=== PATIENT | male | born 1970 | race Caucasian/White ===

== ENCOUNTER 2017-06-16 19:26 | Emergency (ER) | payer BC, OTHER ==
[~2017-06-16] VITALS: Ht 172.7 cm; Wt 67.9 kg
[~2017-06-16 19:26] MED LIST: CRANPOW PO; FLX10 PO; HYDR-4079 PO; IBUP600T44 PO; MAGNESIUM OTC PO; MULT-506 PO
[2017-06-16 19:30] VITALS: TEMP 36.5; Ht 172.7 cm; Wt 67.9 kg
[2017-06-16] MEDS ORDERED: ONDANSETRON INJ 2 MG/ML 2 ML VIAL IV STA (19:41)
[2017-06-16] MEDS ORDERED: SODIUM CHLORIDE 0.9% 1000ML 1,000 ML IV STA (19:41)
[2017-06-16] MEDS ORDERED: KETOROLAC TROMETHAMINE 30 MG/ML VIAL IV STA (19:41)
--- NOTE | 2017-06-16 20:10 | EMERGENCY ROOM VISIT NOTE ---
History Report prepared by Lawanda: Laurence Muhammad Under the Supervision of: Dr. Taiwo Rosenberg M.D. First contact with patient: 19:32 Chief Complaint: GI ASSESSMENT Stated Complaint: NAUSEA,VOMITING,DIARRHEA History of Present Illness The patient is a 47 year old male who presents to the Emergency Room with complaints of constant nausea and sensation of vomiting since last night [employer]. He notes shortness of breath, sore throat, nausea, dry heaving, abdominal pain, achy back pain, neck pain, rhinorrhea, and mild headache. No neck pain or stiffness He denies any fevers, diarrhea, chest pain, ear pain, leg pain or swelling. He denies any underlying medical problems. He has a history of kidney stones. Source of History: patient, spouse/significant other Onset: since last night [employer] Symptom Intensity: 5/10 Quality: other (vomiting) Timing: constant Associated Symptoms: + headache (mild), + sorethroat, + SOB, + nausea, + vomiting (with dry heaving), + abdominal pain, + back pain (achy), No fevers, No chest pain, No diarrhea Note: He notes neck pain and rhinorrhea. He denies ear pain, leg pain, or leg swelling. Review of Systems See HPI for pertinent positives & negatives. A total of 10 systems reviewed and were otherwise negative. Past Medical & Surgical Medical Problems: (1) Kidney stones Surgical Problems: (1) History of thumb surgery Old medical records were reviewed. Nurse's notes were reviewed and I agree with. Family History No pertinent family history reported. Social History Smoking Status: Never Smoker Smokeless Tobacco Use: No Alcohol Use: none Drug Use: none Marital Status: Housing Status: lives with significant other Occupation Status: unemployed Current/Historical Medications Scheduled Ascorbic Acid (Ascorbic Acid), 1 TAB PO DAILY Azithromycin (Zithromax Z-Master), 0 PO UD Calcium Carbonate (Calcium 600), 1 TAB PO DAILY Cholecalciferol (Vitamin D3), 1 CAP PO DAILY Citalopram Hydrobromide (Citalopram Hydrobromide), 1.5 TAB PO DAILY Cyclobenzaprine Hcl (Flexeril), 10 MG PO TID Hydrocodone/Acetaminophen 10MG/325MG ([place] 10MG/325MG), 1 TAB PO QID PRN Ibuprofen (Motrin), 600 MG PO PRN Multivitamin (Multivitamin), 1 TAB PO DAILY Omeprazole (Prilosec), 20 MG PO DAILY Miscellaneous Medications Magnesium Oxide (Mag-Ox), 400 MG PO Allergies Coded Allergies: No Known Allergies (Verified , NONE, 06/16/17) Physical Exam Vital Signs Date Time Temp Pulse Resp B/P (MAP) Pulse Ox O2 Delivery O2 Flow Rate FiO2 06/16/17 21:34 80 18 145/78 100 Room Air 06/16/17 20:32 74 06/16/17 19:30 36.5 80 18 178/99 100 Room Air Physical Exam General: Mildly-ill appearing middle-aged male in no acute distress. Non-toxic HEENT: Normal cephalic atraumatic. Pupils are equal round and reactive to light. Extraocular movements are intact. Oropharynx is pink with moist mucous membranes. No swelling of the mouth lips or tongue. Neck: Supple with a midline trachea. No meningeal signs or stiffness, no JVD or bruits. No Stridor. Chest: Clear to auscultation bilaterally. No wheezes or rhonchi. No increased work of breathing. No respiratory distress. Heart: regular rate and rhythm. Abdomen: Soft nontender, nondistended without rebound guarding or rigidity. Mild tenderness in thoracic spine bilaterally. Mildly diffuse abdominal tenderness. Extremities: No cyanosis clubbing or edema. No calf tenderness or assymetry Spine/Back. Non tender to palpation. No CVA tenderness Skin: Good turgor without rashes. Neurologic exam: Cranial nerves two through 12 are intact. Motor and sensation are intact and symmetrical throughout. Medical Decision & Procedures ER Provider Diagnostic Interpretation: Radiology results as stated below per my review and radiologist interpretation: SINGLE VIEW CHEST CLINICAL HISTORY: Atypical chest pain. FINDINGS: An AP, portable, upright chest radiograph is compared to study dated 06/06/2010. The examination is degraded by portable technique and patient rotation. The cardiomediastinal silhouette is unremarkable. The lungs and pleural spaces are clear. No pneumothorax is seen. The bony thorax is grossly intact. IMPRESSION: No acute cardiopulmonary abnormality. Electronically signed by: Mike Hernandez M.D. 06/16/2017 8:07 PM Dictated Date/Time: 06/16/2017 8:07 PM Laboratory Results 06/16/17 20:05 Red Blood Count 4.44, Mean Corpuscular Volume 75.7, Mean Corpuscular Hemoglobin 21.8, Mean Corpuscular Hemoglobin Concent 28.9, Mean Platelet Volume 9.4, Neutrophils (%) (Auto) 52.4, Lymphocytes (%) (Auto) 25.0, Monocytes (%) (Auto) 11.7, Eosinophils (%) (Auto) 10.2, Basophils (%) (Auto) 0.5, Neutrophils # (Auto ) 3.04, Lymphocytes # (Auto) 1.45, Monocytes # (Auto) 0.68, Eosinophils # (Auto ) 0.59, Basophils # (Auto) 0.03 06/16/17 20:05 Test 06/16/17 20:00 06/16/17 20:05 06/16/17 20:15 Urine Color YELLOW Urine Appearance CLOUDY (CLEAR) Urine pH 6.0 (4.5-7.5) Urine Specific [place] 1.027 (1.000-1.030) Urine Protein 3+ (NEG) Urine Glucose (UA) NEG (NEG) Urine Ketones NEG (NEG) Urine Occult Blood NEG (NEG) Urine Nitrite NEG (NEG) Urine Bilirubin NEG (NEG) Urine Urobilinogen NEG (NEG) Urine Leukocyte Esterase NEG (NEG) Urine WBC (Auto) 1-5 /hpf (0-5) Urine RBC (Auto) 0-4 /hpf (0-4) Urine Hyaline Casts (Auto) 5-10 /lpf (0-5) Urine Epithelial Cells (Auto) >30 /lpf (0-5) Urine Bacteria (Auto) NEG (NEG) Influenza Type A Antigen Neg for Influ A (NEG) Influenza Type B Antigen Neg for Influ B (NEG) White Blood Count 5.80 K/uL (4.8-10.8) Red Blood Count 4.44 M/uL (4.7-6.1) Hemoglobin 9.7 g/dL (14.0-18.0) Hematocrit 33.6 % (42-52) Mean Corpuscular Volume 75.7 fL (80-100) Mean Corpuscular Hemoglobin 21.8 pg (25-34) Mean Corpuscular Hemoglobin Concent 28.9 g/dl (32-36) Platelet Count 605 K/uL (130-400) Mean Platelet Volume 9.4 fL (7.4-10.4) Neutrophils (%) (Auto) 52.4 % Lymphocytes (%) (Auto) 25.0 % Monocytes (%) (Auto) 11.7 % Eosinophils (%) (Auto) 10.2 % Basophils (%) (Auto) 0.5 % Neutrophils # (Auto) 3.04 K/uL (1.4-6.5) Lymphocytes # (Auto) 1.45 K/uL (1.2-3.4) Monocytes # (Auto) 0.68 K/uL (0.11-0.59) Eosinophils # (Auto) 0.59 K/uL (0-0.5) Basophils # (Auto) 0.03 K/uL (0-0.2) RDW Standard Deviation 52.9 fL (36.4-46.3) RDW Coefficient of Variation 19.2 % (11.5-14.5) Immature Granulocyte % (Auto) 0.2 % Immature Granulocyte # (Auto) 0.01 K/uL (0.00-0.02) Hypochromasia PRESENT Microcytosis PRESENT Ovalocytes 1+ Anion Gap 7.0 mmol/L (3-11) Est Creatinine Clear Calc Drug Dose 71.1 ml/min Estimated GFR () 80.8 Estimated GFR (Non- 69.7 BUN/Creatinine Ratio 8.7 (10-20) Calcium Level 9.2 mg/dl (8.5-10.1) Total Bilirubin 0.3 mg/dl (0.2-1) Direct Bilirubin < 0.1 mg/dl (0-0.2) Aspartate Amino Transf (AST/SGOT) 9 U/L (15-37) Alanine Aminotransferase (ALT/SGPT) 13 U/L (12-78) Alkaline Phosphatase 84 U/L (45-117) Total Protein 8.7 gm/dl (6.4-8.2) Albumin 4.7 gm/dl (3.4-5.0) Lipase 185 U/L (73-393) Bedside Troponin I < 0.030 ng/ml (0-0.045) Laboratory studies as stated above per my review. Medications Administered Medications (Trade) Dose Ordered Sig/Nuvia Route Start Time Stop Time Status Last Admin Dose Admin Sodium Chloride 1,000 ml @ 999 mls/hr Q1H1M STAT IV 06/16/17 19:41 06/16/17 20:41 DC 06/16/17 20:11 999 MLS/HR Ondansetron HCl (Zofran Inj) 4 mg NOW STAT IV 06/16/17 19:41 06/16/17 19:43 DC 06/16/17 20:09 4 MG Ketorolac Tromethamine (Toradol Inj) 30 mg NOW STAT IV 06/16/17 19:41 06/16/17 19:43 DC 06/16/17 20:11 30 MG Pseudoephedrine HCl (Sudafed Tab) 30 mg NOW STAT PO 06/16/17 21:50 06/16/17 21:51 DC 06/16/17 21:57 30 MG Azithromycin (Zithromax Tab) 500 mg NOW ONCE PO 06/16/17 22:00 06/16/17 22:01 DC 06/16/17 21:57 500 MG ECG Indication: vomiting Rate (beats per minute): 65 Rhythm: normal sinus Findings: PVC, no acute ischemic change Comparison ECG Date: no prior available ED Course 1931: Past medical records reviewed. The patient was evaluated in room A10, and a complete history and physical examination were performed. 1940: Ordered Toradol 30 mg IV, Zofran 4 mg IV, NSS 1,000 ml @ 999 mls/hr 2146: I reassessed the patient at this time. He is feeling better and resting comfortably. I discussed the results and treatment plan with the patient. I answered all pertaining questions that he had. He expressed understanding and verbalized agreement. The patient will be discharged home. 2149: Ordered Sudafed 30 mg PO 2199: Ordered Zithromax 500 mg PO Medical Decision Differentials include, but are not limited to: viral illness, infection, cardiac disease, and electrolyte or metabolic abnormality. This patient comes in as described above. He was placed in room A 10. He comes in with multiple different complaints. He has had diffuse achiness URI type symptoms and flulike type symptoms and he also some nausea. He appears nontoxic on exam. He has nothing to just meningitis encephalitis or sepsis. IV access established and he was hydrated with IV normal saline and given Toradol IV and IV Zofran and is feeling a lot better. He started complaining mostly of nasal congestion. On exam, he is very congested and says it is making him feel like it's hard to breathe through his nose. He was given Sudafed. Chest x-ray does not show pneumonia. EKG does not suggest acute coronary syndrome or arrhythmia. He's had no chest pain or anything to suggest acute cardiac event. Additionally, His troponin is not elevated. He has no white count or fever to suggest infection. He was found to be anemic at 9.7. I do not have a recent hemoglobin for comparison. He denies that he has any blood or black colored stools. His abdomen is not tender or distended and has nothing to suggest acute intra-abdominal process or trauma. He has no acute electrolyte or metabolic abnormalities. Influenza was negative. I do think is most likely a viral URI however I will put him azithromycin to cover the possibly sinusitis and he can use Sudafed as well encouraged close follow-up with his regular doctor next 1-2 days for recheck. He was happy with plan and was discharged to home. Medication Reconcilliation Current Medication List: was personally reviewed by me Blood Pressure Screening Patient's blood pressure: Elevated blood pressure Blood pressure disposition: Elevated BP felt to be situational Impression Primary Impression: Viral illness Additional Impressions: URI (upper respiratory infection) Sinusitis Scribe Attestation The scribe's documentation has been prepared under my direction and personally reviewed by me in its entirety. I confirm that the note above accurately reflects all work, treatment, procedures, and medical decision making performed by me. Departure Information Dispostion Home / Self-Care Prescriptions Azithromycin (ZITHROMAX Z-MASTER) 250 Mg Tab 0 PO UD, #1 PKT Prov: Taiwo Rosenberg M.D. 06/16/17 Referrals Vineet Borges M.D. (PCP) Forms HOME CARE DOCUMENTATION FORM, IMPORTANT VISIT INFORMATION Patient Instructions My [facility] Additional Instructions Rest Drink plenty of fluids. Use azithromycin Z-Master as directed. May use [id number] Sudafed Follow-up with your doctor in 1-2 days for recheck Return if: Worsening of symptoms, shortness of breath, any new problems or concerns. Problem Qualifiers
[2017-06-16 20:26] LABS: URINE APPEARANCE CLOUDY (CLEAR); URINE BILIRUBIN NEG (NEG); URINE COLOR YELLOW; URINE EPITHELIAL CELL AUTO >30 /lpf (0-5); URINE NITRITE NEG (NEG); URINE SPECIFIC GRAVITY 1.027 (1.000-1.030); UROBILINOGEN NEG (NEG)
[2017-06-16 20:36] LABS: MANUAL MICROSCOPIC REQUIRED? NO; REVIEW REQ? NO
[2017-06-16] MEDS ORDERED: MAGN400T6 PO (20:53)
[2017-06-16] MEDS ORDERED: CALC600T PO (20:53)
[2017-06-16] MEDS ORDERED: CITA20TA4 PO (20:53)
[2017-06-16] MEDS ORDERED: PRLSR20 PO (20:53)
[2017-06-16] MEDS ORDERED: CYCL10TA6 PO (20:53)
[2017-06-16] MEDS ORDERED: CHOL2000 PO (20:53)
[2017-06-16] MEDS ORDERED: ASCO100061 PO (20:53)
[2017-06-16 21:01] LABS: BUN/CREATININE RATIO 8.7 (10-20); CALCIUM 9.2 mg/dl (8.5-10.1); CREATININE 1.22 mg/dl (0.60-1.40); POTASSIUM 3.7 mmol/L (3.5-5.1)
[2017-06-16 21:10] LABS: HEMATOCRIT 33.6 % (42-52); MEAN CELL VOLUME 75.7 fL (80-100); MEAN CORPUSCULAR HEMOGLOBIN 21.8 pg (25-34); MEAN CORPUSCULAR HGB CONC 28.9 g/dl (32-36); MEAN PLATELET VOLUME 9.4 fL (7.4-10.4); PLATELET COUNT 605 K/uL (130-400); RED BLOOD COUNT 4.44 M/uL (4.7-6.1)
[2017-06-16 21:20] LABS: ALKALINE PHOSPHATASE 84 U/L (45-117); ALT/SGPT 13 U/L (12-78); AST/SGOT 9 U/L (15-37)
[2017-06-16 21:34] VITALS: BP 145/78; PULSE 80; O2SAT 100
[2017-06-16] MEDS ORDERED: PSEUDOEPHEDRINE HCL 30 MG TAB PO STA (21:50)
[2017-06-16 21:51] LABS: BASO % 0.5 %; BASO ABS # 0.03 K/uL (0-0.2); EOS % 10.2 %; HYPOCHROMIA PRESENT; IG% 0.2 %; LYMPH ABS # 1.45 K/uL (1.2-3.4); MICROCYTOSIS PRESENT; MONO % 11.7 %; NEUT % 52.4 %; OVALOCYTES 1+
[2017-06-16] MEDS ORDERED: AZITTAB PO (21:53)
[2017-06-16] MEDS ORDERED: AZITHROMYCIN 250 MG TAB PO ONE (22:00)
[2017-06-16 22:11] LABS: COMPLETE YES
== END 2017-06-16 22:00 | disposition home or self-care (01) ==
LOC: C.EDB 19:28 → C.EDA 22:00
DX: J06.9 Acute upper respiratory infection, unspecified (principal); B34.9 Viral infection, unspecified; J32.9 Chronic sinusitis, unspecified; Z87.442 Personal history of urinary calculi; Z79.899 Other long term (current) drug therapy